=== PATIENT | male | born 1980 | race Caucasian/White ===

== ENCOUNTER 2024-09-05 10:45 | Inpatient (IN) ==
--- NOTE | 2024-09-04 15:49 | Anesthesiology Consultation ---
Date of Service September 04, 2024 Assessment & Plan (1) Encounter for pre-operative examination: Chart Review Chart Review: Acceptable Risk for Surgery (pending DOS BMP ) and Patient NOT seen in Pre Admission Testing - Check BSG AM DOS - Check BMP stat DOS (to recheck K DOS) Acute subtle compression fracture (08/22/24) (no surgical intervention necessary per 08/22/[address] [facility] ED note) -Infectious Disease screening: Per PAT nursing assessment on 09/04/24. Pt resides at [facility]. No known infectious disease contacts in past 10 days or current infectious disease symptoms. No recent travel outside the country. Due to residing at facility- phorus Covid test ordered for DOS History Surgery Operation Date: 09/05/24 11:50 Proposed Procedures p Right Knee Tibial Plateau Open Reduction Internal Fixation - Guillaume Martínez DO Height/Weight Height: 5 ft 11 in Weight: 94.801 kg Allergies Allergy/AdvReac Type Severity Reaction Status Date / Time No Known Allergies Allergy Verified 09/04/24 15:29 Medications Home Medications Medication Instructions Recorded Confirmed Last Taken docusate sodium 100 mg capsule 250 mg PO QAM 09/04/24 09/04/24 Unknown (Colace) enoxaparin 40 mg/0.4 mL 40 mg subcut QAM 09/04/24 09/04/24 Unknown subcutaneous syringe (Lovenox) gemfibrozil 600 mg tablet (Lopid) 600 mg PO BID 09/04/24 09/04/24 Unknown glipizide 5 mg tablet 5 mg PO BID 09/04/24 09/04/24 Unknown insulin glargine 100 unit/mL 15 unit subcut BID 09/04/24 09/04/24 Unknown subcutaneous solution (Lantus U-100 Insulin) insulin regular human 100 unit/mL 1 sliding scale dose subcut 09/04/24 09/04/24 Unknown (3 mL) subcutaneous pen (Novolin R USEASDIRECTD FlexPen) lisinopril 30 mg tablet 30 mg PO QAM 09/04/24 09/04/24 Unknown metformin 1,000 mg tablet 1,000 mg PO BID 09/04/24 09/04/24 Unknown omega-3 fatty acids 2,000 mg PO BID 09/04/24 09/04/24 Unknown omeprazole 20 mg capsule,delayed 20 mg PO QAM 09/04/24 09/04/24 Unknown release oxycodone-acetaminophen 5 mg-325 1 tab PO TID PRN Pain 09/04/24 09/04/24 Unknown mg tablet (Percocet) rosuvastatin 40 mg tablet (Crestor) 40 mg PO QPM 09/04/24 09/04/24 Unknown Past Medical History Medical History (Updated 09/04/24 @ 15:59 by Kelle Hudson PA-C) Compression fracture of L2 Acute vertebral body compression fracture at L2 per 08/22/[address] (d/t fall off ladder) Diabetes mellitus, type 2 Fall Fall off roof while putting up metal sheeting 08/22/24- seen in [place] GERD (gastroesophageal reflux disease) Hyperlipidemia Hypertension Inmate in correctional facility Low back pain Neuropathy Umbilical hernia Past Surgical History Surgical History Surgical history unknown Social History Smoking Status: Former smoker Lab Results Anesthesia Preop Results Results Anesthesia Widget: WBC 7.06 K/ul (4.8-10.8) 08/22/24 Hgb 12.8 g/dl (14.0-18.0) L 08/22/24 Hct 38.5 % (42.0-52.0) L 08/22/24 Plt 174 K/uL (130-400) 08/22/24 Na 132 mmol/L (136-145) L 08/22/24 K 5.6 mmol/L (3.5-5.1) H 08/22/24 Cl 99 mmol/L (98-107) 08/22/24 CO2 26 mmol/L (21-32) 08/22/24 BUN 23 mg/dl (6-23) 08/22/24 Creat 1.05 mg/dl (0.6-1.4) 08/22/24 Glucose Level 329 mg/dl (70-99(Fasting)) H* 08/22/24 PT 10.4 Seconds (9.0-12.0) 08/22/24 PTT 24 Seconds (21-31) 08/22/24 INR 1.0 (0.9-1.1) 08/22/24 Urine Color Yellow 08/22/24 Urine Appearance Clear (Clear) 08/22/24 Urine pH 5.0 (4.5-7.5) 08/22/24 Urine Specific [place] 1.041 (1.000-1.030) H 08/22/24 Urine Protein Negative (Negative) 08/22/24 Urine Glucose (UA) 3+ (Negative) H 08/22/24 Urine Ketones Negative (Negative) 08/22/24 Urine Blood Negative (Negative) 08/22/24 Urine Nitrite Negative (Negative) 08/22/24 Urine Bilirubin Negative (Negative) 08/22/24 Urine Urobilinogen Negative (Negative) 08/22/24 Urine Leukocyte Esterase Negative (Negative) 08/22/24 Testing Laboratory Results Hyperkalemia- (K 4.2 on 08/19/24- discussed with Dr. Jj- anveen repeat DOS) 08/19/24= HGB A1C: 10.8 Electrocardiogram Date: 08/22/24 Findings: + NSR @ (92bpm) Normal EKG per cardio Chest X-Ray Date: 08/22/24 Findings: + NAD Other Testing Head CT 08/22/24= Mildly limited exam due to motion. No acute findings seen Cervical Spine CT 08/22/24= No acute cervical spine fracture or subluxation. Lumbar CT 08/22/24= Acute vertebral body compression fracture at L2. Chest/Abdomen/Pelvis CT 08/22/24= No acute posttraumatic intrathoracic, intra- abdominal or intrapelvic abnormality identified. Mild acute L2 compression deformity without retropulsion. Pulmonary emphysema. Hepatic steatosis.
[~2024-09-05 10:45] MED LIST: BUPIVACAINE 0.5 % 5 MG/1 ML PF 10ML VIAL ONE; ROPIVACAINE 0.5% 5 MG/ML 30 ML VIAL ONE
--- NOTE | 2024-09-05 11:06 | History & Physical Bridge Note ---
Date of Service September 05, 2024 History & Physical Bridge Note I have examined the patient, reviewed the History & Physical and in the interval since the performance of the History & Physical I have noted the following changes of clinical significance: This is a 44-year-old gentleman who is an inmate at the [facility] who presented to my office yesterday 2 weeks after his date of injury where he sustained a right tibial plafond fracture. The patient was discharged from the emergency department without advanced imaging and he presented to me without advanced imaging so we sent him from the office to the hospital to obtain a CT scan in order to help with preoperative planning. Based on my review of the patient's CT scan, given the fact that is an intra-articular fracture even though it is minimally displaced, my recommendation is for open reduction internal fixation. Our surgical plan would include an anterolateral approach with an anterolateral plate with independent lag screws through the fracture site and potentially medial buttress plate as well. I did discuss with the patient the alternative surgical management would be for distal tibial rim plate with intramedullary fixation, however given the large coronal split, I am concerned that this may displace the fracture and as such I think plate and screw fixation would be more appropriate. He was in agreement with the plan. The alternative to operative management be for nonoperative care, however believe the patient's risk of nonunion, posttraumatic osteoarthritis, posttraumatic deformity of the leg is much higher. I discussed in great detail the risks and benefits of surgical management with the patient which include but are not limited to loss of life/limb, DVT, incomplete relief pain, need for additional surgery, nonunion, malunion, hardware complication, hardware failure, iatrogenic injury bone/nerve/tendon/vessel, post traumatic osteoarthrosis, Wound healing complications, infection. I also explained to the patient that his risk of wound healing complications is higher than the general public due to his history of diabetes. I did express to him the importance of keeping his postoperative dressing clean and dry. Patient understands these risks and wishes to proceed. Surgical plan: Open reduction internal fixation right distal tibia Postoperatively, the patient will be admitted overnight for observation he will return to [facility] tomorrow provided he does well overnight
[2024-09-05] MEDS ORDERED: SODIUM CHLORIDE 0.9% PF INJ 10 ML VIAL ONE (11:18)
[2024-09-05] MEDS: LACTATED RINGER'S 1,000 ML IV SCH (11:19)
[2024-09-05] MEDS ORDERED: ATROPINE SULFATE 0.1 MG/ML 10ML SYR IV PRN (11:26)
[2024-09-05] MEDS ORDERED: PROMETHAZINE HCL 6.25 MG in SODIUM CHLORIDE 0.9% 50 ML IV PRN (11:26)
[2024-09-05] MEDS ORDERED: HYDROmorphone INJ 1 MG/ML SYRINGE IV PRN (11:26)
[2024-09-05] MEDS ORDERED: KETOROLAC 30 MG/ML VIAL IV PRN (11:26)
[2024-09-05] MEDS ORDERED: LIDOCAINE 2% 2 ML VIAL/AMP(20MG/ML) INFIL ONE (11:27)
[2024-09-05] MEDS ORDERED: PROPOFOL IV EMULSION 10 MG/ML 20 ML VIAL IV ONE (11:27)
[2024-09-05] MEDS ORDERED: ROCURONIUM BROMIDE 10 MG/ML 5 ML VIAL IV ONE (11:27)
[2024-09-05] MEDS ORDERED: MIDAZOLAM HCL 1 MG/ML 2ML VIAL ONE ×2 (11:27→13:44)
[2024-09-05] MEDS ORDERED: ONDANSETRON INJ 2 MG/ML 2 ML VIAL ONE (11:27)
[2024-09-05 11:29] LABS: Anion Gap 10.0 (3-11); Blood Urea Nitrogen 21.0 mg/dl (6-23); Calcium 9.7 mg/dl (8.6-10.3); Carbon Dioxide 25.0 mmol/L (21-32); Chloride 96.0 mmol/L (98-107); Creatinine Clr Calc Pharmacy 97.4 ml/min; Glucose 214.0 mg/dl (70-99(Fasting)); Potassium 4.0 mmol/L (3.5-5.1); Sodium 131.0 mmol/L (136-145)
[2024-09-05] MEDS ORDERED: PHENYLEPHRINE 100MCG/ML 5ML SYR ONE ×2 (12:16→15:50)
[2024-09-05] MEDS ORDERED: KETAMINE HCL 10MG/ML SYR ONE (13:43)
[2024-09-05] MEDS ORDERED: HYDROmorphone INJ 2 MG/ML SYR/VIAL ONE (13:43)
[2024-09-05] MEDS ORDERED: ePHEDrine sulfate 50 MG/5 ML SYR ONE (15:23)
[2024-09-05] MEDS ORDERED: ceFAZolin 330 MG/ML 1 GM VIAL ONE (15:34)
[2024-09-05] MEDS ORDERED: DEXAMETHASONE SOD INJ 4 MG/ML VIAL ONE (15:40)
[2024-09-05] MEDS: VANCOMYCIN HCL 1000MG/20ML VIAL ONE (16:46)
[2024-09-05] MEDS ORDERED: MAGNESIUM HYDROXIDE SUSP 30 ML UDC PO PRN (18:45)
[2024-09-05] MEDS ORDERED: ONDANSETRON INJ 2 MG/ML 2 ML VIAL IV PRN (18:45)
[2024-09-05] MEDS ORDERED: METOCLOPRAMIDE HCL INJ 5 MG/ML 2 ML VIAL IV PRN (18:45)
[2024-09-05] MEDS ORDERED: NALOXONE HCL 0.4 MG/1 ML VIAL/CARP IV PRN (18:45)
--- NOTE | 2024-09-05 19:01 | Operative Report ---
Post Operative Report Pre & Post Diagnosis Operation Date: 09/05/24 11:50 <No data on this case meets the specified criteria> Pre-Op diagnosis: 1. Closed, traumatic, displaced right distal tibia plafond fracture 2. Delayed presentation Postop diagnosis: Same I identified the patient and participated in the time-out.: Yes Procedure Operation Date: 09/05/24 11:50 <No data on this case meets the specified criteria> 1. Open reduction internal fixation right distal tibia plafond and 2. Physician directed fluoroscopy greater than 1 hour 3. Application right below-knee splint Surgeon Guillaume Martínez DO Civil Engineering Project Manager Armando Taylor PA-C Estimated Blood Loss 100 Findings Consistent with Post-Op Diagnosis Specimens none Anesthesia Type General Regional Disposition Disposition: Recovery Room Indications This is a 44-year-old gentleman who is an inmate at the [facility] who presented to my office yesterday 2 weeks after his date of injury where he sustained a right tibial plafond fracture. The patient was discharged from the emergency department without advanced imaging and he presented to me without advanced imaging so we sent him from the office to the hospital to obtain a CT scan in order to help with preoperative planning. Based on my review of the patient's CT scan, given the fact that is an intra-articular fracture even though it is minimally displaced, my recommendation is for open reduction internal fixation. Our surgical plan would include an anterolateral approach with an anterolateral plate with independent lag screws through the fracture site and potentially medial buttress plate as well. I did discuss with the patient the alternative surgical management would be for distal tibial rim plate with intramedullary fixation, however given the large coronal split, I am concerned that this may displace the fracture and as such I think plate and screw fixation would be more appropriate. He was in agreement with the plan. The alternative to operative management be for nonoperative care, however believe the patient's risk of nonunion, posttraumatic osteoarthritis, posttraumatic deformity of the leg is much higher. I discussed in great detail the risks and benefits of surgical management with the patient which include but are not limited to loss of life/limb, DVT, incomplete relief pain, need for additional surgery, nonunion, malunion, hardware complication, hardware failure, iatrogenic injury bone/nerve/tendon/vessel, post traumatic osteoarthrosis, Wound healing complications, infection. I also explained to the patient that his risk of wound healing complications is higher than the general public due to his history of diabetes. I did express to him the importance of keeping his postoperative dressing clean and dry. Patient understands these risks and wishes to proceed. Surgical plan: Open reduction internal fixation right distal tibia Postoperatively, the patient will be admitted overnight for observation he will return to [facility] tomorrow provided he does well overnight Description of Procedure after informed consent was obtained, the patient was correctly identified in the preoperative holding suite, the operative site was marked with the surgeon's initials, the date of surgery, and the word yes. The patient was then taken to the operative suite. The department of anesthesia administered General anesthesia with a popliteal and saphenous nerve block. The patient was transferred from the [facility] to the operative table. All bony prominences were well-padded. Briefing and timeout was performed. All implants were available and sterile at the time. BRIEFING AND DEBRIEFING: Pre and post operative briefing and debriefing was performed. Introductions were made, goals of the procedure were discussed, questions and concerns were addressed. The operative site markings were identified and appropriate. A time [id number] was performed, the patient's correct identity was confirmed and the correct operative sites were identified. The patients pre-operative antibiotic dosing and administration was confirmed along with other SCIP measures. The team was polled at the completion of the surgery and all team members were in agreement that the procedure was without complication, the counts are correct, the wound class was identified and suggestions for improvement were shared. patient was transferred in supine fashion from the hospital bed to the operative table. All bony promises well-padded. The patient's right lower extremity was placed on a bone foam ramp and a bump placed under the ipsilateral hip. A well-padded tourniquet was placed high on the right thigh and an SCD was placed on the left lower extremity. Both arms were placed on well-padded arm boards. We began by removing the patient's splint and washing his leg with chlorhexidine scrub brush. We then prepped and draped the right lower extremity in standard sterile fashion using ChloraPrep. We began by marking out our intended incisions including an anterolateral approach to the ankle as well as a direct medial approach to the proximal spike. We would exsanguinate the limb, raise a tourniquet to 250 mmHg. It remained elevated for 133 minutes. It was not reinflated. We began by sharply incising between the tibia and fibula in line with the fourth ray for an incision of approximately 8 cm in length. We dissected sharply through skin but bluntly subcutaneous tissue identifying the superficial peroneal nerve and protecting this during the entire case. We then incised the fascia over the anterior compartment and bluntly dissected lateral to the peroneus tertius until we encountered the tibial shaft. We would then carry our dissection distally and subperiosteally elevated a flap over the anterior cortex of the tibia retracting the anterior compartment medially. At this point we identified the anterior articular split as well as the split that went in a coronal plane of the tibia. Next, after appropriately exposing the fracture we would gap this open, and sharply debrided the fracture using dental picks curettes, rongeur's. We would gapped open the anterior piece in order to disimpact the compacted bone such that we would be able to achieve an anatomic reduction at the articular surface. we then identified the show plate fragment, gapped this fragment open and debrided any organizing hematoma from this fracture bed as well. We would provisionally pinned this fracture piece in place noting its relationship to the more proximal anterior tibial segment. We then turned our attention towards the medial side. A direct medial incision centered over the medial spike was planned. We made this incision approximately 4 cm in length and this was 4 cm medial to our previous incision allowing for an appropriate skin bridge. We dissected down bluntly to the periosteum and incised the periosteum longitudinally making flaps both anteriorly and posteriorly such that we could see all the fracture fragment. the large anter ior joint piece represented the anterior aspect of this spike in the posterior articular block extending proximally represented the posterior aspect of this spike. At this point, we would begin to reduce the long posterior spike to the anterior portion of the intact tibia proximally. We pulled traction and with some internal rotation we were able to get this provisionally aligned. We did place 2 [id number] reduction clamps proximally and checked our reduction fluoroscopically. Once we are satisfied, we turned our attention towards the distal articular segment and reducing the articular block to the posterior piece. We would use a large [id number] reduction clamp placed on the anterior lateral portion of the articular piece and the second time percutaneously placed lateral to the Achilles tendon on the posterior aspect of the plafond. With traction and appropriate reduction maneuvers we obtained an acceptable reduction of this piece to the long posterior spike. At this point we would check radiographic evaluation and once we are satisfied with our reduction, we would place K wires for provisional fixation outside of the path of our intended plates. prior to placing these plates, however we would place 2 timesx 3.5 mm cortical lag screws in the more proximal aspect of the tibial shaft in order to lag together the anterior cortex on the posterior long spike. These were placed percutaneously through 1 cm stab incisions using a lag by technique technique. Good compression of the fracture was achieved. Next, we would prepare to place our anterolateral plate. We would use a Abraham elevator to elevate the soft tissues off the lateral tibial shaft and then we would submuscularly slide our plate proximally along the tibial shaft. We selected the largest anterolateral plate available to us which was the 15 hole 3.5 mm locking anterolateral distal tibial plate from the [employer] set. We would maneuver this until it sat appropriately on bone and then we provisionally stabilized it with K wires distally. We checked its position fluoroscopically and once we are satisfied we would then make a stab incision proximally and placed a single wire proximally to hold the plate proximally. We check radiographs again and once we are satisfied with the position we would begin filling the plate. We started distally and chose one of the distalmost holes to lag the posterior piece to the anterior articular piece. We would drill through the hole using a lag by technique technique over drilling the near cortex with a 3.5 in the far cortex with a 2.5 mm drill. We placed a 3.5 cortical screw which achieved excellent compression of the anterior articular segment to the posterior take your segment. Next, we would drill through the guides distally, measure, and place appropriately sized 3.5 mm locking screws. We would then removed our first provisionally placed cortical screw and replace this with a locking screw as well. Next, we turned our attention towards securing the plate to the proximal tibia. We would sequentially place cortical screws bicortically through the plate to suck the plate down to bone working our way from distal to proximal. for all of these screws, we would need to place them percutaneously as our distal incision only expose the distal aspect of the plate. We would use fluoroscopy to obtain an appropriate start point and trajectory, for each of these percutaneous holes we would incised the skin sharply and then bluntly dissect using hemostats down to the plate. We were careful to dissect as carefully as possible due to the risk to the superficial peroneal nerve. The longus plate available to us was 15 holes in length, so all proximal holes needed to be filled. Additionally, we would place a single bicortical screw between the 2 previously placed independent lag screws. Next, we turned our attention back distally and placed the final two 3.5 mm locking screws in the distal segment Drilling through the guide. We would then remove our provisional K wires and we assessed our reduction and stabilization. We are satisfied with the anterolateral stabilization, however given the original displacement noted, we felt as if a medial buttress plate along the medial spike would be necessary. Through our previously placed incision, we would use a 5 hole locking one third tubular plate in an antiglide fashion in order to prevent future failure on the medial side. We would drill through the plate and place appropriately sized bicortical 3.5 mm cortical screws just appropriately buttress the medial side and at this point would remove all provisional stabilization and checked final fluoroscopic radiographs. We were satisfied with our reduction and stabilization, so we would then begin thoroughly i rrigating the surgical wounds. We used 1 L sterile saline to thoroughly irrigate the wound and over top of exposed hardware on the anterolateral and medial sides, we would place 1 g of vancomycin powder. We then began our layered closure. for the percutaneous stab incisions, we closed the skin using 4-0 nylon suture in a mattress fashion. For the anterolateral incision, we would closed the anterior compartment fascia using 3-0 Monocryl in a running fashion being sure to avoid the superficial peroneal nerve. We would close the extensor retinaculum with 3-0 Monocryl in interrupted [id number] fashion. On the medial side, the periosteum was closed using a running 3-0 Monocryl and for both the medial incision and the anterolateral incision we would use 4-0 nylon in a vertical Allgower Donati fashion with the knots off of the skin bridge. We went through all sutures first before sequentially tightening and tying them to appropriately distribute the tension forces. Quarter inch brown Steri-Strips were placed between each suture and the tails were pulled through. We then cover the wounds with Betadine soaked Adaptic, 4 x 4's fluffed, sterile Webril. We then placed the patient into a well-padded below-knee AO trauma trilaminar splint holding the ankle in neutral dorsiflexion while the splint cured. The patient tolerated this procedure well and was transferred to the PACU in stable condition. Prior to transportation to PACU, all counts were correct and a briefing was performed at the end of the case. Physician-directed fluoroscopy for greater than one hour was performed by myself to verify fracture alignment and the safe placement of all internal fixation. The final images saved to PACs showed views demonstrating satisfactory alignment of the fracture and stable internal fixation. Implant verification was performed by myself by reading and confirming the implant information on the packaging with the team before the sterile implants were opened. I was present for the entire procedure. Plan: Weight bearing status: nonweightbearing right lower extremity Wound care: keep splint clean and dry Range of motion: as tolerated of hip and knee VTE Prophylaxis: Lovenox to resume tomorrow Antibiotics: perioperative Ancef Pain Control: Multimodal avoiding NSAIDs Discharge Plan: patient will be added admitted for observation tonight and likely discharge back to [facility] tomorrow Follow Up: with myself in 2 to 3 weeks for wound check I attest to the content of the Intraoperative Record and any orders documented therein. Any exceptions are noted below.
--- NOTE | 2024-09-05 19:54 | Anesthesiology Progress Note ---
Date of Service September 05, 2024 Anesthesia Post Procedure Vital Signs Vital Signs: Temp Pulse Pulse Resp BP Pulse Ox O2 Del Method 09/05/24 19:40 83 12 114/68 99 Nasal Cannula 09/05/24 19:25 76 12 124/59 L 99 Nasal Cannula 09/05/24 19:10 36.4 C L 75 14 128/70 94 Nasal Cannula 09/05/24 19:00 78 12 116/69 96 Oxymask 09/05/24 18:50 80 12 121/62 98 Oxymask 09/05/24 18:39 36 C L 90 18 125/66 93 Oxymask 09/05/24 11:05 36.7 C 86 18 105/77 98 Room Air O2 Flow Rate 09/05/24 19:40 2 09/05/24 19:25 2 09/05/24 19:10 2 09/05/24 19:00 4 09/05/24 18:50 4 09/05/24 18:39 4 09/05/24 11:05 Pain Intensity Right Lower Ankle: Pain Intensity: 7 Transfer of Care Handoff Completed per policy Notes Mental Status: alert / awake / arousable Patient Amnestic to Procedure: Yes Nausea / Vomiting: adequately controlled Pain: adequately controlled Airway Patency, RR, SpO2: stable & adequate BP & HR: stable & adequate Hydration State: stable & adequate Anesthetic Complications: no major complications apparent
[2024-09-05] MEDS ORDERED: NON-FORMULARY MEDICATION (Insulin Regular Human [Novolin R Flexpen] 100 unit/mL (3 mL) Ins SQ SCH (20:02)
--- NOTE | 2024-09-05 20:27 | Hospitalist Consultation ---
Date of Consultation September 05, 2024 Assessment & Plan (1) Diabetes mellitus, type 2: (2) Hyperlipidemia: (3) Hypertension: (4) GERD (gastroesophageal reflux disease): (5) Closed right tibial fracture: Plan Pt is a 44 yo male with a past med hx of DMT2 on insulin, HTN, GERD, and HLD who presents to the hospital on 09/05 for surgical repair of R lower tibial fracture after falling off a roof several weeks ago. Hospitalist consult was placed post- op for medical management. #DMT2 on insulin - home regime glargine 15 units BID + glipizide + metformin - will do glargine 8 units BID + SSI (hold home glipizide and metformin) - diet; DMT2 #HTN - continue home lisinopril #GERD - continue home omeprazole (or formulary equivalent) #R tibial fracture - after fall off a roof on 08/22 (also with L2 fracture from then as well that was not advised for surgical intervention per ED note 08/22) - s/p repair on 09/05 - pain management placed by orthopedic doc, pain controlled per pt at this time - per primary ortho team VTE ppx: per surgical team History of Present Illness Reason for Consultation: post op medical comanagement Requesting Physician: Dr Guillaume Martínez Attending Physician: Guillaume Martínez, History of Present Illness Pt is a 44 yo male with a past med hx of DMT2 on insulin, HTN, GERD, and HLD who presents to the hospital on 09/05 for surgical repair of R lower tibial fracture after falling off a roof several weeks ago. Hospitalist consult was placed post- op for medical management. Pt seen at bedside. He states he is feeling well after surgery. No questions or concerns at this time. He does note that he is very hungry. He states the pain in his leg is controlled, he is having some mild back discomfort due to injury from the fall. He states he takes glargine 15 units BID. No chest pain or SOB at this time. No nausea or vomiting or abdominal pain. Allergies Allergy/AdvReac Type Severity Reaction Status Date / Time No Known Allergies Allergy Verified 09/05/24 10:55 Home Medications Medication Instructions Recorded Confirmed Type docusate sodium 100 mg capsule 250 mg PO QAM 09/04/24 09/04/24 History (Colace) enoxaparin 40 mg/0.4 mL 40 mg subcut QAM 09/04/24 09/05/24 History subcutaneous syringe (Lovenox) gemfibrozil 600 mg tablet (Lopid) 600 mg PO BID 09/04/24 09/05/24 History glipizide 5 mg tablet 5 mg PO BID 09/04/24 09/05/24 History insulin glargine 100 unit/mL 15 unit subcut BID 09/04/24 09/05/24 History subcutaneous solution (Lantus U-100 Insulin) insulin regular human 100 unit/mL 1 sliding scale dose subcut 09/04/24 09/05/24 History (3 mL) subcutaneous pen (Novolin R USEASDIRECTD FlexPen) lisinopril 30 mg tablet 30 mg PO QAM 09/04/24 09/05/24 History metformin 1,000 mg tablet 1,000 mg PO BID 09/04/24 09/05/24 History omega-3 fatty acids 2,000 mg PO BID 09/04/24 09/05/24 History omeprazole 20 mg capsule,delayed 20 mg PO QAM 09/04/24 09/05/24 History release oxycodone-acetaminophen 5 mg-325 1 tab PO TID PRN Pain 09/04/24 09/05/24 History mg tablet (Percocet) rosuvastatin 40 mg tablet (Crestor) 40 mg PO QPM 09/04/24 09/05/24 History Patient History Medical History Low back pain Umbilical hernia Neuropathy GERD (gastroesophageal reflux disease) Hypertension Hyperlipidemia Diabetes mellitus, type 2 Inmate in correctional facility Fall Fall off roof while putting up metal sheeting 08/22/24- seen in [place] ED Compression fracture of L2 Acute vertebral body compression fracture at L2 per 08/22/[address] (d/t fall off ladder) Surgical History Surgical history unknown Social History Smoking Status: Former smoker Tobacco Type: Cigarettes Current Living Situation: Other Current Living Situation Comment: inmate Feels Safe at Home: Yes Review of Systems Review of Systems: Per HPI. Physical Exam Physical Exam: General: Alert and oriented, no acute distress, HEENT: Normocephalic, moist oral mucosa, Cardio: Regular rate and rhythm, no murmur, Resp: Lungs clear to auscultation b/l, no wheezes or rhonchi, GI: Soft and nontender, nondistended, bowel sounds active Skin: Warm, pink, dry, Results & Data Results & Data Vital Signs (Past 12 Hours) Vital Signs Temp Pulse Pulse Resp BP Pulse Ox O2 Del Method 09/05/24 19:50 36.5 C 86 18 113/72 96 Room Air 09/05/24 19:40 83 12 114/68 99 Nasal Cannula 09/05/24 19:25 76 12 124/59 L 99 Nasal Cannula 09/05/24 19:10 36.4 C L 75 14 128/70 94 Nasal Cannula 09/05/24 19:00 78 12 116/69 96 Oxymask 09/05/24 18:50 80 12 121/62 98 Oxymask 09/05/24 18:39 36 C L 90 18 125/66 93 Oxymask 09/05/24 11:05 36.7 C 86 18 105/77 98 Room Air O2 Flow Rate 09/05/24 19:50 09/05/24 19:40 2 09/05/24 19:25 2 09/05/24 19:10 2 09/05/24 19:00 4 09/05/24 18:50 4 09/05/24 18:39 4 09/05/24 11:05 Resident Activity Tracking Resident Involvement: Resident Care Provided Care Provided: Adult Hospital Medicine (5) Closed right tibial fracture Encounter type: initial encounter Fracture morphology: unspecified fracture morphology Tibia location: distal Qualified Code(s): S82.301A - Unspecified fracture of lower end of right tibia, initial encounter for closed fracture
[2024-09-05] MEDS: SENNA 8.6 MG TAB PO SCH (20:30)
[2024-09-05] MEDS: DOCUSATE SODIUM 100 MG CAP PO SCH (20:30)
[2024-09-05] MEDS: SODIUM CHLORIDE 0.9% 1,000 ML IV SCH (20:31)
[2024-09-05] MEDS ORDERED: PHARMACY GLYCEMIC MGMT CONSULT PRN (20:34)
[2024-09-05] MEDS ORDERED: DEXTROSE 50% 50 ML SYRINGE IV PRN (20:40)
[2024-09-05] MEDS ORDERED: GLUCOSE 40% GEL 15 GM TUBE PO PRN (20:40)
[2024-09-05] MEDS ORDERED: GLUCAGON FOR INJ 1 MG VIAL SQ PRN (20:40)
[2024-09-05] MEDS ORDERED: CARBOHYDRATES FOR HYPOGLYCEMIA PO PRN (20:40)
[2024-09-05] MEDS ORDERED: GLUCOSE 10 TAB/TUBE PO PRN (20:40)
[2024-09-05] MEDS ORDERED: glipiZIDE 5 MG TAB PO SCH (21:00)
[2024-09-05] MEDS ORDERED: LANTUS PER UNIT CHARGE SQ SCH (21:00)
--- NOTE | 2024-09-05 21:01 | XRay Report ---
EXAM: XR tibia fibula RT 2V CLINICAL HISTORY: postop. TECHNIQUE: X-ray right tibia and fibula, 2 views: AP (Anteroposterior) and lateral projections. COMPARISON: 08/27/2024. FINDINGS: Bone: status post internal fixation of tibial fracture showing satisfactory alignment with no signs of complications. Soft Tissue: Soft tissues appear normal with no significant swelling or abnormal calcifications. IMPRESSION: Status post internal fixation of tibial fracture showing satisfactory alignment with no signs of complications. Disclaimer: A subtle bone abnormality or fracture may not be readily apparent on X-rays, thus clinical correlation and further imaging including follow-up CT, MRI, or follow-up X-rays are advised as needed. Electronically signed by Goran Murcia 09-05-2024 9:00 PM
[2024-09-05] MEDS: INSULIN ASPART PER UNIT CHARGE SC SCH (22:20)
[2024-09-05] MEDS: LANTUS PER UNIT CHARGE SQ ONE (22:20)
[2024-09-06] MEDS: INSULIN ASPART PER UNIT CHARGE SC SCH (01:58)
[2024-09-06] MEDS ORDERED: INSULIN ASPART PER UNIT CHARGE SC SCH ×2 (02:00)
[2024-09-06 07:28] VITALS: RESP 16
[2024-09-06 07:54] LABS: Hemoglobin A1C 9.7 % (4.5-5.6)
--- NOTE | 2024-09-06 08:22 | Orthopedic Progress Note ---
Date of Service September 06, 2024 Assessment & Plan (1) Closed pilon fracture of right tibia: Plan 44-year-old gentleman postoperative day 1 status post open reduction internal fixation right distal tibia plafond fracture. This morning patient is doing well. He demonstrates ability to wiggle his toes. His toes are warm and well-perfused. His nerve block is still causing some numbness so his pain is well-controlled. I instructed the patient on the importance of elevation. He will work with PT today and if deemed appropriate, he will be discharged back to his correctional facility. He is nonweightbearing on the right lower extremity. I will plan to see him back in 2 to 3 weeks for repeat evaluation and suture removal with casting. The patient will continue his Lovenox for DVT prophylaxis. We will send him prescriptions for Tylenol and oxycodone. He already has prescriptions for stool softeners at the snf. Admission and Anticipated Discharge Date Admission Date: September 05, 2024 Subjective 44-year-old gentleman postoperative day #1 status post open reduction internal fixation right distal tibia plafond fracture. Patient doing well. Notes that his nerve block is still working at this point, but he can now wiggle his toes. Review of Systems Review of Systems: All systems reviewed & are unremarkable except as noted in HPI & below Physical Exam Physical Exam: Splint clean dry and intact. Patient wiggles toes. Toes warm and well- perfused. Results & Data Vital Signs (Past 12 Hours) Vital Signs Temp Pulse Resp BP Pulse Ox O2 Del Method 09/06/24 07:00 36.5 C 77 16 110/73 97 Room Air 09/06/24 03:09 36.5 C 75 17 100/67 98 Room Air 09/05/24 23:39 36.9 C 91 H 18 122/79 97 Room Air 09/05/24 22:30 36.5 C 86 18 122/75 97 Room Air 09/05/24 21:28 36.6 C 80 17 126/80 97 Room Air 09/05/24 20:58 36.4 C L 83 18 119/71 97 Room Air 09/05/24 20:28 36.6 C 76 18 112/69 97 Room Air Diagnostic Findings Postoperative imaging reviewed demonstrate stable internal fixation of right distal tibial plafond fracture
--- NOTE | 2024-09-06 08:23 | Discharge Summary ---
Date of Service September 06, 2024 Principal Diagnosis right tibial plafond fracture Discharge Exam Splint clean dry and intact. Patient wiggles toes. Toes warm and well- perfused. Discharge Data Allergies Allergy/AdvReac Type Severity Reaction Status Date / Time No Known Allergies Allergy Verified 09/05/24 10:55 Consultations 09/05/24 18:51 Consult Hospitalist Routine Procedures Performed Operation Date: 09/05/24 11:50 Actual Procedures p Open Reduction Internal Fixation Right Tibial Plafond Fracture, Position Directed Flouroscopy greater than one hour, Application Right Below Knee Splint(Right) - Guillaume Martínez DO Ordered Studies 09/05/24 05:00 US - OR guided needle placemen Routine 09/05/24 11:50 FL ankle RT min 3V RTN Routine Hospital Course (1) Closed pilon fracture of right tibia: Plan 44-year-old gentleman postoperative day 1 status post open reduction internal fixation right distal tibia plafond fracture. This morning patient is doing well. He demonstrates ability to wiggle his toes. His toes are warm and well-perfused. His nerve block is still causing some numbness so his pain is well-controlled. I instructed the patient on the importance of elevation. He will work with PT today and if deemed appropriate, he will be discharged back to his correctional facility. He is nonweightbearing on the right lower extremity. I will plan to see him back in 2 to 3 weeks for repeat evaluation and suture removal with casting. The patient will continue his Lovenox for DVT prophylaxis. We will send him prescriptions for Tylenol and oxycodone. He already has prescriptions for stool softeners at the halfway. Total Time Total Time Spent Total Time Spent (In Minutes): 20 Discharge Plan Discharge Items Patient Disposition: Correctional Facility Reason For Visit: Right Tibial Plateau Fracture Discharge Diagnosis: right tibial plafond fracture Activity: Per Instructions section Non-emergency contact: Primary Care Provider and Surgeon Call non-emergency contact if: you have any medication questions, your pain is not controlled, your temperature is above 101 and your wound pain has increased Follow-up/Referrals: Terrance MELO [Primary Care Provider] - Diet: Carb Consistent or DM2 Addtl Attending Provider Instructions: non weight bearing RLE take lovenox for DVT ppx follow up in 2-3 weeks for wound check multimodal pain control (tylenol and oxycodone) avoid NSAIDs keep leg elevated to help control swelling Pending Studies at Discharge: No Stand-Alone Forms: My [facility] Skilled Items Patient informed of condition?: Yes Discharge Level of Care: Other Communicable Disease: No Discharge Prognosis: Stable Lines: None Urinary Catheter: No Medications and DC Order Prescriptions: New oxycodone 5 mg Tablet 5 mg PO Q6 PRN (Reason: pain) 7 Days Qty: 25 0RF acetaminophen [Tylenol] 325 mg tablet 650 mg PO Q6H PRN (Reason: fever or pain) Qty: 60 0RF Continued insulin glargine [Lantus U-100 Insulin] 100 unit/mL Solution 15 unit SUBCUT BID gemfibrozil [Lopid] 600 mg Tablet 600 mg PO BID metformin 1,000 mg Tablet 1,000 mg PO BID lisinopril 30 mg Tablet 30 mg PO QAM docusate sodium [Colace] 100 mg Capsule 250 mg PO QAM omeprazole 20 mg Capsule,Delayed Release(Dr/Ec) 20 mg PO QAM glipizide 5 mg Tablet 5 mg PO BID enoxaparin [Lovenox] 40 mg/0.4 mL Syringe 40 mg SUBCUT QAM Novolin R FlexPen 100 unit/mL (3 mL) Insulin Pen 1 sliding scale dose SUBCUT USEASDIRECTD omega-3 fatty acids Capsule 2,000 mg PO BID rosuvastatin [Crestor] 40 mg Tablet 40 mg PO QPM Discontinued oxycodone-acetaminophen [Percocet] 5-325 mg Tablet 1 tab PO TID PRN (Reason: Pain) Discharge Orders: Discharge Order (Routine); Ordered 09/06/24 Ordered By: Guillaume Martínez Admission Data Admit Date/Time: 09/05/24 18:45 Attending Provider: Guillaume Martínez Admit Provider: Guillaume Martínez [facility] Other Providers: Walter Lauren; Delmis Conroy; Bandar Peter; Owen Crow; Jerry Bryan; Ghulam Rodney; Lili Ledezma; Eliz Morales; Rona Stuart; Kami Adams; Mayur Bryan; Soha Mo; Vega Falcon; Bandar Wellington; Roni Carter; Juan Jaime; Lurdes Mariscal; Lurdes Hill; Ely Kirkland; Yuliana Blanco N; Luz Lawler; Neda Bernal; Will Kimball; Ignacio Sullivan; Harmeet Cochran.; Maday Griffiths; Ro Zhong; Sanjay Chavez; Juan Mukherjee; Jerry Triplett; Anat Nunez; Nelly Sarabia; Treasure Mcdonald; Guillaume Olmstead; Barry Gutierrez; Idalmis Virgen; Jhonathan Parekh; Danielle Domínguez; Jayme Awan; Leia Frizt; Onofre Oneil; Dannielle Thakur; Manoj Rose; Jose Rafael Oneil; Rajeev Broussard
[2024-09-06] MEDS ORDERED: LANTUS PER UNIT CHARGE SC SCH (09:00)
--- NOTE | 2024-09-06 09:01 | Fluoroscopy Report ---
INTRAOPERATIVE RADIOGRAPHS CLINICAL HISTORY: Open reduction and internal fixation of the distal right tibia. Fluoro time: 386 seconds Ka,r: 18.60 mGy FINDINGS: 13 spot fluoroscopic views of the right ankle are correlated with radiographs dated . A buttress plate has been placed along the anterolateral cortex of the distal tibia transfixing a tibial fracture. A second buttress plate is placed along the lateral cortex of the distal tibia. Nume clifford cortical lag screws transfix the plates. Near-anatomic alignment is restored. Overlying soft tis khushi edema is noted. IMPRESSION: Intraoperative images from open reduction and internal fixation of a distal right tibial fracture as above. Electronically signed by: Sergio Ghosh M.D. 09/06/2024 8:59 AM
[2024-09-06] MEDS: MULTIVITAMIN TAB PO SCH (09:53)
[2024-09-06] MEDS: ENOXAPARIN INJ 40 MG/0.4 ML SYR SQ SCH (09:53)
[2024-09-06] MEDS: LANTUS PER UNIT CHARGE SC SCH (09:54)
[2024-09-06 11:07] VITALS: BP 148/83; PULSE 90; TEMP 97.5; O2SAT 98
[2024-09-06] MEDS: HYDROmorphone INJ 1 MG/ML SYRINGE IV STA (11:46)
== END 2024-09-06 13:58 | DRG 494 ==
LOC: ASU 10:45 → 3E 18:45